=== PATIENT | male | born 1940 | race Two or more races ===

== ENCOUNTER 2022-09-12 10:51 | Inpatient (IN) | payer MEDICARE, OTHER ==
[~2022-09-12] VITALS: Ht 182.9 cm; Wt 71.2 kg
[2022-09-12] MEDS ORDERED: LEVOFLOXACIN 750MG PREMIX 150 ML IV ONE (11:30)
[2022-09-12] MEDS ORDERED: SODIUM CHLORIDE 0.9% 1000ML BAG (SEPSIS BOLUS) IV ONE (11:30)
[2022-09-12 13:37] LABS: HEMATOCRIT. 31.5 % (42.0-52.0); HEMOGLOBIN. 10.4 g/dL (14.0-18.0); MEAN PLATELET VOLUME 6.2 fl (7.4-10.4); PLATELET 330 x1000/uL (130-400); RED BLOOD CELL COUNT 3.47 mill/uL (4.7-6.1)
[2022-09-12 13:50] LABS: CHLORIDE 100 mEq/L (98-107)
[2022-09-12 13:53] LABS: PLATELET ESTIMATE NORMAL
[2022-09-12] MEDS ORDERED: LEVOFLOXACIN 750MG PREMIX 150 ML IV NR (15:15)
[2022-09-12] MEDS ORDERED: OSELTAMIVIR 75MG CAPSULE PO ONE (15:30)
[2022-09-12] MEDS ORDERED: OSELTAMIVIR 75MG CAPSULE PO NR (17:15)
[2022-09-12 22:00] VITALS: BP 120/72
[2022-09-13] VITALS (7 sets, daily range): BP systolic 110–125; BP diastolic 56–68
[2022-09-13] MEDS ORDERED: DEXTROSE 50% WATER 50ML SYRINGE IV PRN ×2 (00:15→12:15)
[2022-09-13] MEDS ORDERED: VANCOMYCIN 1G PREMIX 200 ML IV NR (01:30)
[2022-09-13] MEDS: DEXT 5%/0.9% NACL 1,000 ML IV SCH ×2 (05:49→12:56)
[2022-09-13 06:22] LABS: BASOPHILS % 0.3 % (0.0-2.0); EOSINOPHILS % 0.7 % (0.0-5.0); HEMATOCRIT. 27.7 % (42.0-52.0); HEMOGLOBIN. 9.3 g/dL (14.0-18.0); LYMPHOCYTES % 7.5 % (20.0-50.0); MEAN CORPUSCULAR HEMOGLOBIN 30.4 pg (28.0-32.0); MEAN CORPUSCULAR VOLUME 90.9 fL (80.0-94.0); MEAN PLATELET VOLUME 6.2 fl (7.4-10.4); MONOCYTES % 10.5 % (2.0-8.0); PLATELET 312 x1000/uL (130-400); RED BLOOD CELL COUNT 3.05 mill/uL (4.7-6.1); RED CELL DISTRIBUTION WIDTH 17.1 % (11.6-14.6)
[2022-09-13 06:33] LABS: CHLORIDE 103 mEq/L (98-107)
[2022-09-13 06:41] LABS: HDL CHOLESTEROL 31 mg/dL (40-59); LDL CHOLESTEROL 13 mg/dL (5-100)
[2022-09-13] MEDS ORDERED: BLOOD SUGAR DIAGNOSTIC STRIP TEST SCH (07:40)
[2022-09-13] MEDS: PANTOPRAZOLE SODIUM 40 MG/VIAL IV SCH (08:44)
[2022-09-13] MEDS: ENOXAPARIN 40MG/0.4ML SYR SUBCUT SCH (08:44)
[2022-09-13] MEDS ORDERED: CEFEPIME HCL 1000MG/VIAL INJ IM SCH (09:00)
[2022-09-13] MEDS: CEFEPIME 1,000 MG in DEXTROSE 5% WATER 50 ML IV SCH (10:28)
[2022-09-13] MEDS: INSULIN LISPRO 100 UNITS/ML SUBCUT SCH ×3 (12:53→21:00)
[2022-09-13] MEDS: BLOOD SUGAR DIAGNOSTIC STRIP TEST SCH ×3 (13:02→21:34)
[2022-09-13] MEDS ORDERED: CLONIDINE 0.1MG TABLET PO PRN (17:15)
[2022-09-13] MEDS ORDERED: MAGNESIUM/ALUMINUM HYDROXIDE/SIMETHICONE 30ML UDC PO PRN (17:15)
[2022-09-13] MEDS ORDERED: DIPHENHYDRAMINE 50MG/ML VIAL IV PRN (17:15)
[2022-09-13] MEDS ORDERED: ACETAMINOPHEN 325MG TABLET PO PRN (17:15)
[2022-09-13] MEDS ORDERED: METF-414 PO (18:16)
[2022-09-13] MEDS ORDERED: ATOR10TA69 PO (18:16)
[2022-09-13] MEDS ORDERED: NEPVIT MT (18:17)
[2022-09-13] MEDS ORDERED: CHOL400D7 PO (18:18)
[2022-09-13] MEDS ORDERED: FOLI-43 MT (18:19)
[2022-09-13] MEDS ORDERED: FOLI0.4T6 MT (18:19)
[2022-09-13] MEDS ORDERED: TAMS-11 PO (18:20)
[2022-09-13] MEDS ORDERED: SENN-174 PO (18:21)
[2022-09-13] MEDS: VANCOMYCIN 1G PREMIX 200 ML IV SCH (21:35)
[2022-09-13 23:17] LABS: CLARITY URINE TURBID (CLEAR); COLOR URINE YELLOW (YELLOW); KETONES URINE TRACE (NEGATIVE); LEUKOCYTE ESTERASE URINE 3+ (NEGATIVE); NITRITE URINE POSITIVE (NEGATIVE); OCCULT BLOOD URINE 3+ (NEGATIVE); PROTEIN URINE 1+ (NEGATIVE); SPECIFIC GRAVITY URINE 1.016 (1.005-1.030); UROBILINOGEN URINE 0.2 E.U./dL (0.2-1.0)
[2022-09-14 00:48] VITALS: BP 140/54
[2022-09-14 04:00] VITALS: BP 108/66
[2022-09-14] MEDS: CEFEPIME 1,000 MG in DEXTROSE 5% WATER 50 ML IV SCH ×3 (06:30→22:04)
[2022-09-14] MEDS: DEXT 5%/0.9% NACL 1,000 ML IV SCH ×2 (06:31→14:35)
[2022-09-14] MEDS: BLOOD SUGAR DIAGNOSTIC STRIP TEST SCH ×4 (07:40→21:00)
[2022-09-14 08:00] VITALS: BP 115/65
[2022-09-14] MEDS: INSULIN LISPRO 100 UNITS/ML SUBCUT SCH ×4 (08:10→21:00)
[2022-09-14] MEDS: PANTOPRAZOLE SODIUM 40 MG/VIAL IV SCH (08:27)
[2022-09-14] MEDS: ENOXAPARIN 40MG/0.4ML SYR SUBCUT SCH (08:28)
[2022-09-14 12:00] VITALS: BP_SYST 112; BP_SYST 115; BP_DIAS 65; BP_DIAS 70
[2022-09-14 16:00] VITALS: BP 105/53
[2022-09-14 20:00] VITALS: BP 104/66
[2022-09-14] MEDS: VANCOMYCIN 1G PREMIX 200 ML IV SCH (22:04)
[2022-09-15] VITALS (7 sets, daily range): BP systolic 106–121; BP diastolic 47–72
[2022-09-15] MEDS: DEXT 5%/0.9% NACL 1,000 ML IV SCH ×2 (06:20→15:47)
[2022-09-15 06:25] LABS: CHLORIDE 107 mEq/L (98-107)
[2022-09-15] MEDS: BLOOD SUGAR DIAGNOSTIC STRIP TEST SCH ×4 (07:40→21:00)
[2022-09-15] MEDS: ENOXAPARIN 40MG/0.4ML SYR SUBCUT SCH (09:20)
[2022-09-15] MEDS: FAMOTIDINE 20MG/2ML VIAL IV SCH (09:21)
[2022-09-15] MEDS: INSULIN LISPRO 100 UNITS/ML SUBCUT SCH ×4 (09:22→21:00)
[2022-09-15] MEDS: CEFEPIME 1,000 MG in DEXTROSE 5% WATER 50 ML IV SCH ×2 (09:26→22:29)
[2022-09-15] MEDS ORDERED: POTASSIUM CHLORIDE 20MEQ/PACKET PO NR (14:00)
[2022-09-15 17:00] LABS: BASOPHILS % 0.6 % (0.0-2.0); EOSINOPHILS % 1.8 % (0.0-5.0); HEMATOCRIT. 25.8 % (42.0-52.0); HEMOGLOBIN. 8.6 g/dL (14.0-18.0); LYMPHOCYTES % 11.4 % (20.0-50.0); MEAN CORPUSCULAR HEMOGLOBIN 30.4 pg (28.0-32.0); MEAN CORPUSCULAR VOLUME 91.2 fL (80.0-94.0); MEAN PLATELET VOLUME 6.1 fl (7.4-10.4); MONOCYTES % 9.8 % (2.0-8.0); NEUTROPHILS % 76.4 % (40.0-76.0); PLATELET 330 x1000/uL (130-400); RED BLOOD CELL COUNT 2.83 mill/uL (4.7-6.1); RED CELL DISTRIBUTION WIDTH 17.2 % (11.6-14.6)
[2022-09-15] MEDS: VANCOMYCIN 1G PREMIX 200 ML IV SCH (17:19)
[2022-09-15 17:26] LABS: CHLORIDE 109 mEq/L (98-107)
[2022-09-16] VITALS: BP 130/63
[2022-09-16 04:00] VITALS: BP 127/64
[2022-09-16] MEDS: DEXT 5%/0.9% NACL 1,000 ML IV SCH ×2 (06:23→16:09)
[2022-09-16] MEDS: BLOOD SUGAR DIAGNOSTIC STRIP TEST SCH ×4 (07:40→20:12)
[2022-09-16 08:00] VITALS: BP 135/61
[2022-09-16] MEDS: INSULIN LISPRO 100 UNITS/ML SUBCUT SCH ×4 (08:10→20:16)
[2022-09-16] MEDS: ENOXAPARIN 40MG/0.4ML SYR SUBCUT SCH (08:52)
[2022-09-16] MEDS: FAMOTIDINE 20MG/2ML VIAL IV SCH (08:52)
[2022-09-16] MEDS: CEFEPIME 1,000 MG in DEXTROSE 5% WATER 50 ML IV SCH ×2 (08:52→20:12)
[2022-09-16 12:00] VITALS: BP 95/67
[2022-09-16] MEDS: VANCOMYCIN 1G PREMIX 200 ML IV SCH (15:34)
[2022-09-16 16:00] VITALS: BP 126/74
[2022-09-16 20:00] VITALS: BP 106/52
[2022-09-17] VITALS: BP 99/61
[2022-09-17 04:00] VITALS: BP 113/55
[2022-09-17] MEDS: DEXT 5%/0.9% NACL 1,000 ML IV SCH ×2 (04:26→17:49)
[2022-09-17] MEDS: VANCOMYCIN 1G PREMIX 200 ML IV SCH (04:27)
[2022-09-17] MEDS: BLOOD SUGAR DIAGNOSTIC STRIP TEST SCH ×4 (06:41→20:09)
[2022-09-17 08:00] VITALS: BP 107/56
[2022-09-17] MEDS: INSULIN LISPRO 100 UNITS/ML SUBCUT SCH ×4 (08:10→20:09)
[2022-09-17] MEDS: ENOXAPARIN 40MG/0.4ML SYR SUBCUT SCH (09:04)
[2022-09-17] MEDS: FAMOTIDINE 20MG/2ML VIAL IV SCH (09:43)
[2022-09-17] MEDS: CEFEPIME 1,000 MG in DEXTROSE 5% WATER 50 ML IV SCH ×2 (09:44→20:36)
[2022-09-17 12:00] VITALS: BP 129/70
[2022-09-17 16:00] VITALS: BP 116/59
[2022-09-17] MEDS: ACETAMINOPHEN 325MG TABLET PO PRN (17:52)
[2022-09-17 20:00] VITALS: BP 119/63
[2022-09-18] VITALS: BP 154/73
[2022-09-18 04:00] VITALS: BP 119/53
[2022-09-18] MEDS: DEXT 5%/0.9% NACL 1,000 ML IV SCH ×2 (05:16→19:39)
[2022-09-18] MEDS: ACETAMINOPHEN 325MG TABLET PO PRN ×2 (05:17→23:47)
[2022-09-18] MEDS: BLOOD SUGAR DIAGNOSTIC STRIP TEST SCH ×4 (06:56→20:52)
[2022-09-18 08:00] VITALS: BP 126/69
[2022-09-18] MEDS: INSULIN LISPRO 100 UNITS/ML SUBCUT SCH ×4 (08:10→20:52)
[2022-09-18] MEDS: FAMOTIDINE 20MG/2ML VIAL IV SCH (08:33)
[2022-09-18] MEDS: ENOXAPARIN 40MG/0.4ML SYR SUBCUT SCH (08:33)
[2022-09-18 12:00] VITALS: BP 120/55
[2022-09-18 16:00] VITALS: BP 118/62
[2022-09-18 20:00] VITALS: BP 120/82
[2022-09-19] VITALS: BP 159/69
[2022-09-19 04:00] VITALS: BP 122/60
[2022-09-19] MEDS: DEXT 5%/0.9% NACL 1,000 ML IV SCH (05:39)
[2022-09-19] MEDS: BLOOD SUGAR DIAGNOSTIC STRIP TEST SCH ×3 (06:32→21:00)
[2022-09-19] MEDS: INSULIN LISPRO 100 UNITS/ML SUBCUT SCH ×4 (07:50→22:50)
[2022-09-19 08:00] VITALS: BP 125/62
[2022-09-19] MEDS: FAMOTIDINE 20MG TABLET PO SCH (10:22)
[2022-09-19] MEDS: ENOXAPARIN 40MG/0.4ML SYR SUBCUT SCH (10:23)
[2022-09-19 12:00] VITALS: BP 130/71
[2022-09-19 16:00] VITALS: BP 124/65
[2022-09-19 20:00] VITALS: BP 120/66
[2022-09-20] VITALS: BP 124/68
[2022-09-20 04:00] VITALS: BP 126/64
[2022-09-20] MEDS: INSULIN LISPRO 100 UNITS/ML SUBCUT SCH ×4 (06:17→21:00)
[2022-09-20] MEDS: BLOOD SUGAR DIAGNOSTIC STRIP TEST SCH ×4 (07:20→21:08)
[2022-09-20 08:00] VITALS: BP 140/98
[2022-09-20] MEDS: FAMOTIDINE 20MG TABLET PO SCH (10:05)
[2022-09-20] MEDS: ENOXAPARIN 40MG/0.4ML SYR SUBCUT SCH (10:05)
[2022-09-20] MEDS: LEVOFLOXACIN 500MG TABLET PO SCH (11:00)
[2022-09-20 12:00] VITALS: BP 121/66
[2022-09-20 17:18] LABS: BASOPHILS % 0.8 % (0.0-2.0); HEMATOCRIT. 23.6 % (42.0-52.0); HEMOGLOBIN. 7.8 g/dL (14.0-18.0); LYMPHOCYTES % 14.2 % (20.0-50.0); MEAN CORPUSCULAR HEMOGLOBIN 30.2 pg (28.0-32.0); MONOCYTES % 9.6 % (2.0-8.0); NEUTROPHILS % 72.4 % (40.0-76.0); PLATELET 351 x1000/uL (130-400); RED CELL DISTRIBUTION WIDTH 17.7 % (11.6-14.6)
[2022-09-20 20:00] VITALS: BP 127/92
[2022-09-20] MEDS ORDERED: POTASSIUM CHLORIDE 20MEQ TABLET SR PO NR (20:15)
[2022-09-20] MEDS: ACETAMINOPHEN 325MG TABLET PO PRN (22:46)
[2022-09-21] VITALS: BP 120/59
[2022-09-21 04:00] VITALS: BP 137/63
[2022-09-21] MEDS: BLOOD SUGAR DIAGNOSTIC STRIP TEST SCH ×3 (07:20→17:20)
[2022-09-21] MEDS: INSULIN LISPRO 100 UNITS/ML SUBCUT SCH ×3 (07:50→21:33)
[2022-09-21 08:00] VITALS: BP 126/81
[2022-09-21] MEDS: ENOXAPARIN 40MG/0.4ML SYR SUBCUT SCH (10:15)
[2022-09-21] MEDS: FAMOTIDINE 20MG TABLET PO SCH (10:16)
[2022-09-21 12:00] VITALS: BP 115/57
[2022-09-21] MEDS: LEVOFLOXACIN 500MG TABLET PO SCH (12:00)
[2022-09-21 16:00] VITALS: BP 131/65
[2022-09-21 20:00] VITALS: BP 124/73
[2022-09-22] VITALS: BP 141/69
[2022-09-22 04:00] VITALS: BP 121/61
[2022-09-22] MEDS: BLOOD SUGAR DIAGNOSTIC STRIP TEST SCH ×4 (07:20→21:00)
[2022-09-22 07:50] VITALS: BP 119/66
[2022-09-22] MEDS: INSULIN LISPRO 100 UNITS/ML SUBCUT SCH ×4 (07:50→21:00)
[2022-09-22] MEDS: FAMOTIDINE 20MG TABLET PO SCH (09:02)
[2022-09-22] MEDS: ENOXAPARIN 40MG/0.4ML SYR SUBCUT SCH (09:02)
[2022-09-22 11:40] VITALS: BP 114/46
[2022-09-22] MEDS: LEVOFLOXACIN 500MG TABLET PO SCH (11:49)
[2022-09-22] MEDS: ACETAMINOPHEN 325MG TABLET PO PRN ×2 (11:49→22:04)
[2022-09-22 15:56] VITALS: BP 107/69
[2022-09-22 20:00] VITALS: BP 124/64
[2022-09-22] MEDS: DEXT 5%/0.9% NACL 1,000 ML IV SCH (22:04)
[2022-09-23] VITALS: BP 126/67
[2022-09-23 04:00] VITALS: BP 128/57
[2022-09-23] MEDS: BLOOD SUGAR DIAGNOSTIC STRIP TEST SCH ×2 (06:23→12:57)
[2022-09-23] MEDS: INSULIN LISPRO 100 UNITS/ML SUBCUT SCH ×2 (07:50→12:50)
[2022-09-23 08:00] VITALS: BP 128/61
[2022-09-23] MEDS: FAMOTIDINE 20MG TABLET PO SCH (09:13)
[2022-09-23] MEDS: ENOXAPARIN 40MG/0.4ML SYR SUBCUT SCH (09:13)
[2022-09-23] MEDS: LEVOFLOXACIN 500MG TABLET PO SCH (11:00)
[2022-09-23 12:00] VITALS: BP 140/80
[2022-09-23 15:03] VITALS: BP 20/140
[2022-09-23 16:00] VITALS: BP 145/71
== END 2022-09-23 18:39 | DRG 871 ==
LOC: EDBD 10:51 → ER 10:51 → 7WST 15:23 → 6EST 09-18 17:10
PROVIDERS: ADMIT Internal Medicine; ATTEND Internal Medicine
DX: A41.9 Sepsis, unspecified organism (principal); E43 Unspecified severe protein-calorie malnutrition; N39.0 Urinary tract infection, site not specified; E11.9 Type 2 diabetes mellitus without complications; Z20.822 Contact with and (suspected) exposure to COVID-19; F03.90 Unspecified dementia, unspecified severity, without behavioral disturbance, psychotic disturbance, mood disturbance, and anxiety; B96.20 Unspecified Escherichia coli [E. coli] as the cause of diseases classified elsewhere; I10 Essential (primary) hypertension; M19.90 Unspecified osteoarthritis, unspecified site; Z96.653 Presence of artificial knee joint, bilateral; Z88.0 Allergy status to penicillin; N40.0 Benign prostatic hyperplasia without lower urinary tract symptoms
CPT/HCPCS: 36415; 71045; 80048; 80053; 80061; 80202; 81003; 82962; 83036; 83605; 83880; 84145; 84484; 85025; 86850; 86900; 87077; 87106; 87186; 87426; 87804; 93005; 97162; 97530; 99285; A6261; C1893; C9113; C9803; J0692; J1650; J1815; J1956; J3370; J3490; J7030; J7042; J7060